=== PATIENT | male | born 1940 | race Caucasian/White ===

== ENCOUNTER → 2017-02-26 | Day surgery (SDC) | payer MEDICARE, OTHER ==
[~2017-02-26] MED LIST: AMLO5 PO; BUPIVACAINE HCL PF 0.5% 30 ML VIAL ONE; BYST10TA2 PO; CLON0.1T PO; IOHEXOL 180 MG/ML 20 ML VIAL (for RAD DIAG) EPIDURAL ONE; IRBE300T11 PO; LISI40TA PO; LYRI50CA PO; OXYC1TAB36 PO; PRED2.5T PO; PROPOFOL 200 MG/20 ML AMP IV ONE; TEMA30CA PO; TRIAMCINOLONE ACETONIDE 40 MG/ML VIAL I-ARTICULR ONE; methylPREDNISolone ACETATE 40 MG/ML VIAL I-ARTICULR ONE
--- NOTE | 2017-03-01 12:29 | M6 ---
cc: LUCY HARRIS M.D. DATE: 02/26/2017 1938 PROCEDURE Fluoroscopically guided injection bilateral sacroiliac joints. History and physical was completed and signed. Consent was signed. Procedure site was marked. Medications were listed and reconciled. Pain score was recorded. Allergies were noted. Time out was taken. Fluoroscopy time was recorded where applicable. Sedation was administered or directed by Dr. Harris. The patient was given oxygen. The patient was monitored by a registered nurse. Total procedure time was greater than 15 minutes. IV was started, blood pressure cuff, pulse oximeter and EKG were applied. The patient was placed in the prone position on a Dudley table, sedated with small amounts of propofol titrated to effect. Vital signs were monitored and remained stable throughout the procedure. The sacral area was prepped with alcohol and 10% Betadine solution and draped with sterile drapes. Fluoroscopy was used shooting from medial to lateral to clearly visualize the posterior joint line of the bilateral sacroiliac joints. Separate sterile 5-inch 22 gauge spinal needles were advanced into these joints under fluoroscopic guidance. There was negative aspiration for blood or any other type of fluid and at each location the patient was given 2 mL of 0.5% Marcaine, 20 mg of Depo-Medrol, 20 mg of Kenalog. Following the procedure the patient was taken to the recovery room with stable vital signs neurologically intact. He will be evaluated immediately and with followup to determine if he has a subjective decrease in his pain and a corresponding objective increase in his functional capabilities. W. MD CHELSEA Thornton/DANY /8:50 AM /12:18 PM
== END | disposition home or self-care (01) ==
LOC: PHSDC 06:44
PROVIDERS: ATTEND Pain Medicine Interventional Pain Medicine
DX: M54.5 Low back pain (principal)
CPT/HCPCS: 99152; G0260; J1030; J3301; Q9965; 27096

== ENCOUNTER → 2017-10-09 | Day surgery (SDC) | payer MEDICARE, OTHER ==
[~2017-10-09] MED LIST changes: -AMLO5 PO; -BUPIVACAINE HCL PF 0.5% 30 ML VIAL ONE; -IOHEXOL 180 MG/ML 20 ML VIAL (for RAD DIAG) EPIDURAL ONE; -IRBE300T11 PO; +LIDOCAINE HCL PF 2% VIAL NERV BLOCK ONE; +SODIUM CHLORIDE 0.9% 10 ML VIAL ONE; -TRIAMCINOLONE ACETONIDE 40 MG/ML VIAL I-ARTICULR ONE; +TRIAMCINOLONE ACETONIDE 40 MG/ML VIAL NERV BLOCK ONE; -methylPREDNISolone ACETATE 40 MG/ML VIAL I-ARTICULR ONE
--- NOTE | 2017-10-12 19:38 | M6 ---
cc: LUCY HARRIS M.D., ROHIT K. M.D. DATE: 10/12/2017. PROCEDURE PERFORMED: Fluoroscopically guided right L3 selective nerve root block. DESCRIPTION OF THE PROCEDURE IN DETAIL: History and physical was completed and signed. Consent was signed. Procedure site was marked. Medications were listed and reconciled. Pain score was recorded. Allergies were noted. Time out was taken. Fluoroscopy time was recorded where applicable. Sedation was administered or directed by Dr. Harris. The patient was given oxygen. The patient was monitored by a registered nurse. Total procedure time was greater than 15 minutes. IV was started, blood pressure cuff, pulse oximeter and EKG were applied. The patient was placed in the prone position on a Dudley table and sedated with small amounts of propofol titrated to effect. Vital signs were monitored and remained stable throughout the procedure. The lumbar area was prepped with alcohol and 10% Betadine solution and draped with sterile drapes. Fluoroscopy was used in both the AP and lateral projections to clearly visualize the right L3-4 neural foramen. then a 3-1/2-inch 22-gauge Chiba needle was advanced into the dorsal aspect of the foramen. There was negative aspiration for blood or any other type of fluid and 1.5 mL of Omnipaque was injected and seen to spread distally along the L3 nerve root and a small amount of Omnipaque spread medially through the neural foramen. At this point, the patient was given 0.5 mL of 2% lidocaine and 20 mg of Kenalog. Following this, the patient was taken to the recovery room with stable vital signs neurologically intact. He will be evaluated immediately and with followup to determine if he has a subjective decrease in his usual pain and a corresponding objective increase in his functional capabilities. W. MD CHELSEA Thornton/AUREA /9:26 AM /6:57 PM
== END | disposition home or self-care (01) ==
LOC: PHSDC 07:56
PROVIDERS: ATTEND Pain Medicine Interventional Pain Medicine
DX: M54.5 Low back pain (principal)
CPT/HCPCS: 64483; 99152; J3301

== ENCOUNTER → 2017-10-29 | Day surgery (SDC) | payer MEDICARE ==
[~2017-10-29] MED LIST changes: +BUPIVACAINE HCL PF 0.5% 30 ML VIAL ONE; -LIDOCAINE HCL PF 2% VIAL NERV BLOCK ONE; -SODIUM CHLORIDE 0.9% 10 ML VIAL ONE; +TRIAMCINOLONE ACETONIDE 40 MG/ML VIAL I-ARTICULR ONE; -TRIAMCINOLONE ACETONIDE 40 MG/ML VIAL NERV BLOCK ONE; +methylPREDNISolone ACETATE 40 MG/ML VIAL I-ARTICULR ONE
--- NOTE | 2017-10-29 08:58 | M6 ---
cc: LUCY HARRIS M.D. DATE: 10/29/2017 1938 PROCEDURE Fluoroscopically guided injection bilateral sacroiliac joints. PREPROCEDURE NOTE Attention Dr. Garcia: On 10/09/2017, I performed a fluoroscopically guided right L3 selective nerve root injection on Mr. Almeida. He reports today that he had no pain on his right side for 2 days. History and physical was completed and signed. Consent was signed. Procedure site was marked. Medications were listed and reconciled. Pain score was recorded. Allergies were noted. Time out was taken. Fluoroscopy time was recorded where applicable. Sedation was administered or directed by Dr. Harris. The patient was given oxygen. The patient was monitored by a registered nurse. Total procedure time was greater than 15 minutes. IV was started, blood pressure cuff, pulse oximeter and EKG were applied. The patient was placed in the prone position on a Dudley table, sedated with small amounts of propofol titrated to effect. Vital signs were monitored and remained stable throughout the procedure. The lumbar area was prepped with alcohol and 10% Betadine solution, draped with sterile drapes. Fluoroscopy was used shooting from medial to lateral to clearly visualize the posterior joint line of the bilateral sacroiliac joints. Separate sterile 5-inch 22-gauge spinal needles were advanced into these joints under fluoroscopic guidance. There was negative aspiration for blood or any other type of fluid and at each location the patient was given 1-1/2 mL of 0.5% Marcaine, 20 mg of Depo-Medrol, 20 mg of Kenalog. Following the procedure the patient was taken to the recovery room with stable vital signs neurologically intact. He will be evaluated immediately and with followup to determine if he has a subjective decrease in his usual pain and a corresponding objective increase in his functional capability. W. MD CHELSEA Thornton/DANY /8:27 AM 8:32 AM
== END | disposition home or self-care (01) ==
LOC: PHSDC 06:37
PROVIDERS: ATTEND Pain Medicine Interventional Pain Medicine
DX: M54.5 Low back pain (principal)
CPT/HCPCS: 99152; G0260; J1030; J3301; 27096

== ENCOUNTER → 2018-03-06 | Outpatient (CLI) | payer MEDICARE ==
[~2018-03-06] MED LIST changes: -BUPIVACAINE HCL PF 0.5% 30 ML VIAL ONE; +CYCL10TA PO; +PERC10TA27 PO; -PROPOFOL 200 MG/20 ML AMP IV ONE; +TERA1CAP3 PO; -TRIAMCINOLONE ACETONIDE 40 MG/ML VIAL I-ARTICULR ONE; -methylPREDNISolone ACETATE 40 MG/ML VIAL I-ARTICULR ONE
[2018-03-06 12:45] LABS: INTERNATIONAL NORMALIZED RATIO 1.2 RATIO; PROTHROMBIN TIME - PATIENT 11.8 SEC (9.8-11.6)
[2018-03-06 12:47] LABS: AUTOMATED NEUTROPHIL # 2.3 TH/MM3 (1.8-7.7); BASOPHIL % 0.5 % (0.0-2.0); EOSINOPHIL # 0.2 TH/MM3 (0-0.4); EOSINOPHIL % 4.9 % (0.0-4.0); HEMATOCRIT 34.8 % (39.0-51.0); HEMOGLOBIN 11.9 GM/DL (13.0-17.0); LYMPH % 27.7 % (9.0-44.0); LYMPHOCYTE # 1.2 TH/MM3 (1.0-4.8); MEAN CELL VOLUME 96.5 FL (80.0-100.0); MEAN CORPUSCULAR HEMOGLOBIN 32.9 PG (27.0-34.0); MEAN CORPUSCULAR HGB CONC 34.1 % (32.0-36.0); MEAN PLATELET VOLUME 8.7 FL (7.0-11.0); MONO % 14.9 % (0.0-8.0); MONOCYTE # 0.7 TH/MM3 (0-0.9); PLATELET COUNT 170 TH/MM3 (150-450); RED BLOOD COUNT 3.61 MIL/MM3 (4.50-5.90); RED CELL DISTRIBUTION WIDTH 14.4 % (11.6-17.2); WHITE BLOOD COUNT 4.4 TH/MM3 (4.0-11.0)
[2018-03-06 12:54] LABS: BILIRUBIN, URINE NEG (NEG); BLOOD, URINE NEG (NEG); GLUCOSE,URINE NEG (NEG); HYALINE CAST, URINE 11 /lpf (RARE); KETONE, URINE NEG (NEG); MUCUS URINE FEW /lpf (OCC); NITRITE,URINE NEG (NEG); SQUAMOUS EPITHELIAL CELL URINE <1 /hpf (0-5); URINE COLOR YELLOW (YELLW/STRAW); URINE LEUKOCYTE ESTERASE NEG (NEG)
[2018-03-06 13:04] LABS: ALBUMIN 3.9 GM/DL (3.4-5.0); BLOOD UREA NITROGEN 29 MG/DL (7-18); CREATININE 1.52 MG/DL (0.60-1.30); GLOMERULAR FILTRATION RATE 44 ML/MIN (>89); GLUCOSE,FASTING 78 MG/DL (74-99); TOTAL PROTEIN 8.3 GM/DL (6.4-8.2)
[2018-03-06 13:05] LABS: ALKALINE PHOSPHATASE 92 U/L (45-117); ALT (GPT) 17 U/L (12-78); AST (GOT) 36 U/L (15-37); BICARBONATE 28.3 MEQ/L (21.0-32.0); CALCIUM 8.8 MG/DL (8.5-10.1); CHLORIDE 105 MEQ/L (98-107); SODIUM (NA) 141 MEQ/L (136-145)
--- NOTE | 2018-03-08 12:10 | EKG ---
Date Performed: 03/06/2018 Time Performed: 12:27:58 PTAGE: 77 years EKG: Sinus rhythm WITH OCCASIONAL VENTRICULAR PREMATURE COMPLEXES BORDERLINE ECG PREVIOUS TRACING : 07/15/2012 11.00 DOCTOR: Ericka Freedman Interpretating Date/Time 03/08/2018 11:59:07
== END ==
LOC: CPRE 12:00
PROVIDERS: ATTEND Neurological Surgery
DX: Z01.812 Encounter for preprocedural laboratory examination (principal); Z01.810 Encounter for preprocedural cardiovascular examination; M48.062 Spinal stenosis, lumbar region with neurogenic claudication; M51.36 Other intervertebral disc degeneration, lumbar region; M43.10 Spondylolisthesis, site unspecified; R94.31 Abnormal electrocardiogram [ECG] [EKG]; Z79.01 Long term (current) use of anticoagulants
CPT/HCPCS: 36415; 80053; 81001; 85025; 85610; 85730; 87640; 87641; 93005

== ENCOUNTER 2018-03-14 06:05 | Inpatient (IN) | payer MEDICARE ==
[~2018-03-14] VITALS: Ht 180.3 cm; Wt 108.1 kg
[~2018-03-14 06:05] MED LIST changes: -CYCL10TA PO; -PERC10TA27 PO
[2018-03-14] MEDS ORDERED: POVIDONE IODINE 5% (ANTISEPSIS KIT) 4 APPLICATIONS EACH NARE PRN (06:30)
[2018-03-14] MEDS ORDERED: ceFAZolin 2 GM/DEX PREMIX 50 ML IV SCH (06:30)
[2018-03-14] MEDS ORDERED: LACTATED RINGER'S 1000 ML IV PRN (06:30)
[2018-03-14] MEDS ORDERED: CHLORHEXIDINE GLUCONATE 2 % 1 PACK (2 CLOTHS) TOPICAL PRN (06:30)
[2018-03-14] MEDS ORDERED: SODIUM CHLORID 0.9% 500 ML IV PRN (06:30)
[2018-03-14] MEDS: SODIUM CHLOR 0.9% 1000 ML INJ 1,000 ML IV SCH ×3 (06:30→15:39)
[2018-03-14] MEDS ORDERED: METOPROLOL TARTRATE 25 MG TAB PO PRN (06:30)
[2018-03-14] MEDS ORDERED: GELFOAM SIZE 100 ONE ×2 (07:00→10:44)
[2018-03-14] MEDS ORDERED: BUPIVACAINE/EPINEPHRINE 0.5% PF 10 ML VIAL ONE (07:00)
[2018-03-14] MEDS ORDERED: THROMBIN (TOPICAL) 5,000 UNIT VIAL ONE ×2 (07:00→10:44)
[2018-03-14] MEDS ORDERED: VANCOMYCIN HCL 1000 MG VIAL ONE ×2 (07:03→10:09)
[2018-03-14] MEDS ORDERED: HYDROCORTISONE SOD SUCCINATE 100 MG VIAL ONE (07:06)
[2018-03-14] MEDS ORDERED: ACETAMINOPHEN 1000 MG/100 ML 100 ML IV ONE (08:19)
[2018-03-14] MEDS ORDERED: HYDROCORTISONE SOD SUCCINATE 100 MG VIAL IV SCH (08:30)
[2018-03-14] MEDS ORDERED: GENTAMICIN SULFATE 80 MG/2 ML VIAL ONE (08:40)
[2018-03-14] MEDS ORDERED: ARTIFICIAL TEARS OPTH OINT 3.5 APPLIC/3.5 GM TUBO ONE (08:46)
[2018-03-14] MEDS ORDERED: GLYCOPYRROLATE 1 MG/5 ML SYRINGE IV PUSH ONE (12:00)
[2018-03-14] MEDS ORDERED: ONDANSETRON HCL 4 MG/2 ML VIAL IV PUSH ONE (12:00)
[2018-03-14] MEDS ORDERED: DEXAMETHASONE SOD PHOS 4 MG/ML VIAL IV ONE (12:00)
[2018-03-14] MEDS ORDERED: LIDOCAINE HCL 1% PF 5 ML SYRINGE OTHER ONE (12:00)
[2018-03-14] MEDS ORDERED: LACTATED RINGER'S 1000 ML INJ 1,000 ML IV ONE (12:00)
[2018-03-14] MEDS ORDERED: ROCURONIUM INJ 50 MG/5 ML SYRINGE IV PUSH ONE (12:00)
[2018-03-14] MEDS ORDERED: ePHEDrine/NS 25 MG/5 ML SYRINGE IV ONE (12:00)
[2018-03-14] MEDS ORDERED: PROPOFOL 200 MG/20 ML AMP IV ONE (12:00)
[2018-03-14] MEDS ORDERED: NEOSTIGMINE 5 MG/5 ML SYRINGE IV PUSH ONE (12:00)
[2018-03-14] MEDS ORDERED: PHENYLEPH/NS 1000 MCG/10 ML SYR IV ONE (12:00)
[2018-03-14] MEDS ORDERED: NORMOSOL R INJ 1,000 ML IV ONE (12:00)
[2018-03-14] MEDS ORDERED: ceFAZolin INJ 1,000 MG VIAL IV ONE (12:00)
[2018-03-14] MEDS ORDERED: CALCIUM GLUCONATE INJ 1 GM in SODIUM CHLORIDE 0.9% INJ 100 ML IV PRN (14:00)
[2018-03-14] MEDS ORDERED: MORPHINE SULFATE 4 MG/ML INJ IV PUSH PRN (14:00)
[2018-03-14] MEDS ORDERED: MAGNESIUM SULFATE INJ 2 GM in SODIUM CHLORIDE 0.9% INJ 100 ML IV PRN (14:00)
[2018-03-14] MEDS ORDERED: DO NOT ADM ANY ANTICOAGULANT DRUGS PRN (14:00)
[2018-03-14] MEDS ORDERED: MAGNESIUM HYDROXIDE SUSP 30 ML CUP PO PRN (14:00)
[2018-03-14] MEDS ORDERED: TEMAZEPAM 15 MG CAP PO PRN (14:00)
[2018-03-14] MEDS ORDERED: ONDANSETRON HCL 4 MG/2 ML VIAL IV PUSH PRN (14:00)
[2018-03-14] MEDS ORDERED: BISACODYL 10 MG SUPP RECTAL PRN (14:00)
[2018-03-14] MEDS ORDERED: SENNOSIDES 8.6 MG TAB PO PRN (14:00)
[2018-03-14] MEDS ORDERED: POTASSIUM CHLOR 20 MEQ PREMIX 100 ML IV PRN (14:00)
[2018-03-14] MEDS: HYDROCORTISONE SOD SUCCINATE 100 MG VIAL IV PUSH SCH ×2 (14:00→22:24)
[2018-03-14] MEDS ORDERED: MENTHOL LOZENGE BUCCAL PRN (14:00)
[2018-03-14] MEDS ORDERED: RESP: ALBUTEROL 2.5 MG/3 ML NEB (PRN) NEB (14:00)
[2018-03-14] MEDS ORDERED: ALUMINUM/MAGNESIUM/SIMETH 30 ML CUP PO PRN (14:00)
[2018-03-14] MEDS ORDERED: cloNIDine HCL 0.1 MG TAB PO PRN (14:00)
[2018-03-14] MEDS ORDERED: PROMETHAZINE INJ 25 MG/ML VIAL IM PRN (14:00)
[2018-03-14] MEDS ORDERED: oxyCODONE/ACETAMINOPHEN 10 MG/325 MG TAB PO PRN (14:00)
[2018-03-14] MEDS ORDERED: ACETAMINOPHEN 325 MG TAB PO PRN ×2 (14:00→19:15)
[2018-03-14] MEDS ORDERED: CYCLOBENZAPRINE HCL 10 MG TAB PO PRN (14:00)
[2018-03-14] MEDS ORDERED: SODIUM CHLORIDE 0.9% FLUSH 10 ML FLUSH IV FLUSH PRN (14:00)
[2018-03-14] MEDS ORDERED: *morphine SULFATE 4 MG/ML PERIprocedure ONLY ONE (14:03)
--- NOTE | 2018-03-14 14:03 | PD.OP ---
MD Issa Steele MD Operative Report Date of Surgery: March 14, 2018 Preoperative Diagnosis: Severe L2-3 and L3-4 degenerative disc disease with disc height collapse along with facet hypertrophy and foraminal stenosis with associated intractable low back pain Postoperative Diagnosis: Same Procedure: Lumbar L2-3 and L3-4 transforaminal interbody fusion; L2-4 pedicle screw fixation; L2-3 and L3-4 interbody cage placement; microsurgical technique Anesthesia: General endotracheal by Екатерина villareal Surgeon: José Miguel Garcia MD Account Manager Trainee(s): Bela Du Operation and Findings: Following initiation of general endotracheal anesthesia, the patient had a Mccloud catheter placed along with sequential compression devices. Ancef 2 grams was administered intravenously and he was turned in a prone position on a Chandler frame, on a Dudley table, and all pressure points adequately padded. The lumbosacral region was then prepped with Chloraprep and sterilely draped with Ioban along the usual sterile draping. A right paraspinal skin incision was then made extending from the L2-4 levels after infiltrating the skin with 0.5% Marcaine with epinephrine solution extending down through the fascia. The muscle fibers were split using avascular fatty plane and detached from the underlying facets, transverse process and lateral portion of lamina on the right side and a self-retaining retractor used for exposure. Intraoperative fluoroscopy was also used for level of confirmation along with microscope magnification for further dissection. There was significant facet and ligamentum flavum hypertrophy noted at the L2-3 and L3-4 levels. Right L2-3 and L3-4 facets were resected with a drill bit along with the lamina and there was severe foraminal and lateral recess stenosis from hypertrophied ligamentum flavum and facet which were decompressed. There was significant disc height collapse along with disc protrusion also leading to the foraminal stenosis. Epidural hemostasis was achieved with bipolar cautery and Gelfoam with thrombin. Subsequently entered into the disc space at the L2-3 and L3-4 levels with a #15 blade and sheron were used for discectomy. I then placed PEEK cages packed with local autograft bone and more local autograft bone was packed adjacent to the cage in both interspaces for added interbody fusion. With placement of the cages, I was able to distract the interspaces and open up the foramen further bilaterally. Subsequently in order to facilitate the fusion and provide stabilization, pedicle screw fixation was undertaken using [place] spine screws on entry point at the right L2, L3 and L4 levels at the junction of the transverse process and facet. Subsequently using AP and lateral fluoroscopy tap and screw placement. The screws were then connected with a geovanna and locked in place with caps. The construct appeared very secure at this point. The area was then copiously irrigated with Vancomycin solution and powder. The retractors were removed and the bipolar cautery used for hemostasis. The muscle fascia was then approximated using 2-0 Vicryl interrupted stitches and then 3-0 Vicryl subcuticular stitches also placed in interrupted fashion. The final skin closure was with corinne. A sterile dressing was then applied. The patient then turned in supine position, extubated and taken to recovery room. There were no intraoperative complications. All sponge and needle counts were correct at the end of procedure. Estimated blood loss about 300 ml. José Miguel Garcia MD March 14, 2018 14:03
--- NOTE | 2018-03-14 14:36 | RADRPT ---
EXAM DATE: 03/14/2018 2:04 PM EDT AGE/SEX: 77 years / Male INDICATIONS: Post-op L2-L3 and L3-L4 posterior lumbar fusion. CLINICAL DATA: This is the patient's initial encounter. Patient reports that signs and symptoms have been present for 1 day and indicates a pain score of Nonresponsive. MEDICAL/SURGICAL HISTORY: Non-responsive. Fusion, lumbar. COMPARISON: No prior [facility] exams available for comparison. FINDINGS: Postsurgical changes are noted following lumbar fusion. A right-sided fusion geovanna is identified extend ing from L2 to L4. There is a left-sided fusion geovanna extending from L4 to S1. Cages are identified in the L2-3, L3-4, L4-5 and L5-S1 discs. Lumbar alignment is intact. CONCLUSION: Satisfactory post operative appearance of the lumbar spine following lumbosacral fusion as described. Electronically signed by: Kenton Kelly MD 03/14/2018 2:35 PM EDT
[2018-03-14] MEDS ORDERED: *HYDROmorphone PF 0.5 MG/0.5 ML PERIprocedure ONLY ONE ×2 (14:42→15:17)
[2018-03-14] MEDS ORDERED: MIDAZOLAM HCL 2 MG/2 ML VIAL ONE (14:57)
[2018-03-14 16:10] VITALS: BP 142/65; PULSE 68; RESP 19; TEMP 98.1; O2SAT 96
[2018-03-14] MEDS: PREGABALIN 25 MG CAP PO SCH (18:00)
[2018-03-14] MEDS: cloNIDine HCL 0.1 MG TAB PO SCH (18:25)
[2018-03-14 18:37] LABS: AUTOMATED NEUTROPHIL # 7.8 TH/MM3 (1.8-7.7); HEMATOCRIT 35.5 % (39.0-51.0); HEMOGLOBIN 12.2 GM/DL (13.0-17.0); LYMPH % 5.6 % (9.0-44.0); LYMPHOCYTE # 0.5 TH/MM3 (1.0-4.8); MEAN CELL VOLUME 96.9 FL (80.0-100.0); MEAN CORPUSCULAR HEMOGLOBIN 33.2 PG (27.0-34.0); MEAN CORPUSCULAR HGB CONC 34.3 % (32.0-36.0); MEAN PLATELET VOLUME 9.3 FL (7.0-11.0); MONO % 1.4 % (0.0-8.0); MONOCYTE # 0.1 TH/MM3 (0-0.9); PLATELET COUNT 180 TH/MM3 (150-450); RED BLOOD COUNT 3.66 MIL/MM3 (4.50-5.90); RED CELL DISTRIBUTION WIDTH 14.5 % (11.6-17.2); WHITE BLOOD COUNT 8.4 TH/MM3 (4.0-11.0)
[2018-03-14 18:53] LABS: BICARBONATE 23.7 MEQ/L (21.0-32.0); CALCIUM 8.1 MG/DL (8.5-10.1); CREATININE 1.72 MG/DL (0.60-1.30)
[2018-03-14 20:00] VITALS: BP 119/62; PULSE 68; RESP 19; TEMP 97.3; O2SAT 99
[2018-03-14] MEDS: oxyCODONE/ACETAMINOPHEN 10 MG/325 MG TAB PO PRN (20:50)
[2018-03-14] MEDS: SODIUM CHLORIDE 0.9% FLUSH 10 ML FLUSH IV FLUSH SCH (20:53)
[2018-03-14] MEDS: DOCUSATE SODIUM 50 MG/SENNA 8.6 MG TAB PO SCH (20:53)
[2018-03-14] MEDS: TERAZOSIN HCL 1 MG CAP PO SCH (20:53)
[2018-03-15] VITALS (7 sets, daily range): BP systolic 93–141; BP diastolic 52–64; PULSE 62–83; RESP 16–20; TEMP 97.8–98.5; O2SAT 96–99
[2018-03-15] MEDS: HYDROCORTISONE SOD SUCCINATE 100 MG VIAL IV PUSH SCH (05:10)
[2018-03-15] MEDS: SODIUM CHLOR 0.9% 1000 ML INJ 1,000 ML IV SCH ×2 (05:32→13:50)
[2018-03-15] MEDS: SODIUM CHLORIDE 0.9% FLUSH 10 ML FLUSH IV FLUSH SCH ×2 (09:00→22:03)
[2018-03-15] MEDS: LISINOPRIL 20 MG TAB PO SCH (09:00)
[2018-03-15] MEDS: NEBIVOLOL 10 MG TAB PO SCH (09:00)
[2018-03-15] MEDS: cloNIDine HCL 0.1 MG TAB PO SCH ×3 (09:00→18:00)
[2018-03-15] MEDS: LACTULOSE SYRUP 20 GM/30 ML CUP PO SCH (09:00)
[2018-03-15] MEDS: oxyCODONE/ACETAMINOPHEN 10 MG/325 MG TAB PO PRN ×2 (09:01→22:03)
[2018-03-15] MEDS: DOCUSATE SODIUM 50 MG/SENNA 8.6 MG TAB PO SCH ×2 (09:01→22:03)
[2018-03-15] MEDS: PANTOPRAZOLE SOD 40 MG DELAYED RELEASE TAB PO SCH (09:01)
[2018-03-15] MEDS: PREGABALIN 25 MG CAP PO SCH ×2 (09:27→22:03)
--- NOTE | 2018-03-15 14:52 | HHI.NSPN ---
(Ralph Schultz) History Chief Complaint: Incisional pain. (Ralph Schultz) Interval History 03/15/18: Pt s/p Lumbar L2-3 and L3-4 transforaminal interbody fusion; L2-4 pedicle screw fixation; L2-3 and L3-4 interbody cage placement; microsurgical technique on 03/14/18. He states he is doing better with mod incisional pain but not the chronic low back pain. No radiculopathy or paresthesias in LEs. He is ambulating short distance. (Ralph Schultz) Review of Systems General: Negative for: fever, chills, insomnia Respiratory: Negative for: shortness of breath, cough, sputum Cardiovascular: Negative for: chest pain Gastrointestinal: Negative for: nausea, vomitting, diarrhea, constipation ( Ralph Schultz) Exam Results Vital Signs Date Time Temp Pulse Resp B/P (MAP) Pulse Ox O2 Delivery O2 Flow Rate FiO2 03/15/18 12:00 97.8 72 16 103/56 (72) 99 03/15/18 10:04 Nasal Cannula 2.00 Intake and Output 03/15/18 03/15/18 03/16/18 08:00 16:00 00:00 Intake Total 750 ml Output Total 800 ml Balance -50 ml (Ralph Schultz) Physical Examination General: Pt sitting up in chair wanting to go back to bed after being up several hours. His is in NAD. Eyes: Pupils equal. Sclera anicteric. Resp: CTA bilaterally Heart: NSR No murmurs Abd: Soft positive bs Skin: Pt returned to bed and bandage changed. No cyanosis or erythema. new bandage placed. Bruce in place. Muscle: Moves LEs with 5/5 strength. Neuro: Pt awake and alert. Follows commands well. Speech clear and appropriate. Sensation intact in LEs. (Ralph Schultz) Lab, Micro, Other Results Last Impressions Lumbar Spine X-Ray 03/14/18 0000 Signed Impressions: CONCLUSION: Satisfactory post operative appearance of the lumbar spine following lumbosacra l fusion as described. Laboratory Tests Test 03/14/18 18:02 White Blood Count 8.4 TH/MM3 Red Blood Count 3.66 MIL/MM3 Hemoglobin 12.2 GM/DL Hematocrit 35.5 % Mean Corpuscular Volume 96.9 FL Mean Corpuscular Hemoglobin 33.2 PG Mean Corpuscular Hemoglobin Concent 34.3 % Red Cell Distribution Width 14.5 % Platelet Count 180 TH/MM3 Mean Platelet Volume 9.3 FL Neutrophils (%) (Auto) 93.0 % Lymphocytes (%) (Auto) 5.6 % Monocytes (%) (Auto) 1.4 % Eosinophils (%) (Auto) 0.0 % Basophils (%) (Auto) 0.0 % Neutrophils # (Auto) 7.8 TH/MM3 Lymphocytes # (Auto) 0.5 TH/MM3 Monocytes # (Auto) 0.1 TH/MM3 Eosinophils # (Auto) 0.0 TH/MM3 Basophils # (Auto) 0.0 TH/MM3 CBC Comment DIFF FINAL Differential Comment Blood Urea Nitrogen 30 MG/DL Creatinine 1.72 MG/DL Random Glucose 145 MG/DL Calcium Level 8.1 MG/DL Sodium Level 139 MEQ/L Potassium Level 5.1 MEQ/L Chloride Level 104 MEQ/L Carbon Dioxide Level 23.7 MEQ/L Anion Gap 11 MEQ/L Estimat Glomerular Filtration Rate 39 ML/MIN (Ralph Schultz) Medical Decision Making Impression and Plan A: 77 y/o M s/p Lumbar L2-3 and L3-4 transforaminal interbody fusion; L2-4 pedicle screw fixation; L2-3 and L3-4 interbody cage placement; microsurgical technique P: Continue with pain control Possibly d/c home tomorrow. (Ralph Schultz) Attending Statement The exam, history, and the medical decision-making described in the above note were completed with the assistance of the mid-level provider. I reviewed and agree with the findings presented. I attest that I had a [id number]-[id number]-pymm encounter with the patient on the same day, and personally performed and documented my assessment and findings in the medical record. (José Miguel Garcia MD) Ralph Schultz March 15, 2018 14:52 José Miguel Garcia MD March 15, 2018 14:55
[2018-03-15] MEDS ORDERED: PERC10TA27 PO (14:54)
[2018-03-15] MEDS ORDERED: CYCL10TA PO (14:54)
--- NOTE | 2018-03-15 14:59 | HHI.FF ---
Face to Face Verification Diagnosis: (1) Chronic low back pain (2) DDD (degenerative disc disease), lumbar Physical Therapy Order: Evaluate and Treat, Improve ambulation, Strength and gait training Home Health Nursing Order: Wound care and dressing changes Nursing assessment with vital signs Instructions: Remove lumbar corinne on 03/25/18 I have seen patient Humberto Almeida on 03/15/18. My clinical findings support the need for the requested home health care services because: Deconditioned w/ increased weakness High risk of falls I certify that my clinical findings support that this patient is homebound because: Post-op weakness Unsteady gait/balance Unable to use public transportation Ralph Schultz March 15, 2018 2:58 pm
[2018-03-15] MEDS ORDERED: predniSONE 5 MG TAB PO SCH ×2 (16:00→21:00)
[2018-03-15] MEDS: TERAZOSIN HCL 1 MG CAP PO SCH (22:03)
[2018-03-16] MEDS: SODIUM CHLOR 0.9% 1000 ML INJ 1,000 ML IV SCH ×2 (01:13→05:10)
[2018-03-16 08:00] VITALS: BP 151/70; PULSE 84; RESP 18; TEMP 98.5; O2SAT 99
[2018-03-16] MEDS: LACTULOSE SYRUP 20 GM/30 ML CUP PO SCH (09:00)
[2018-03-16] MEDS: oxyCODONE/ACETAMINOPHEN 10 MG/325 MG TAB PO PRN (09:06)
[2018-03-16] MEDS: PANTOPRAZOLE SOD 40 MG DELAYED RELEASE TAB PO SCH (09:06)
[2018-03-16] MEDS: LISINOPRIL 20 MG TAB PO SCH (09:07)
[2018-03-16] MEDS: DOCUSATE SODIUM 50 MG/SENNA 8.6 MG TAB PO SCH (09:10)
[2018-03-16] MEDS: PREGABALIN 25 MG CAP PO SCH (09:12)
[2018-03-16] MEDS: NEBIVOLOL 10 MG TAB PO SCH (09:17)
[2018-03-16] MEDS: SODIUM CHLORIDE 0.9% FLUSH 10 ML FLUSH IV FLUSH SCH (09:17)
[2018-03-16] MEDS: cloNIDine HCL 0.1 MG TAB PO SCH (09:17)
== END 2018-03-16 12:21 | disposition home health service (06) | DRG 460 ==
LOC: HSDI 06:05 → N06A 16:04
PROVIDERS: ADMIT Neurological Surgery; ATTEND Neurological Surgery
PROC: 0SB20ZZ Excision of Lumbar Vertebral Disc, Open Approach (ICD-10-PCS; 2018-03-14)
PROC: 0SG10AJ Fusion of 2 or more Lumbar Vertebral Joints with Interbody Fusion Device, Posterior Approach, Anterior Column, Open Approach (ICD-10-PCS; principal; 2018-03-14 08:38)
DX: M51.36 Other intervertebral disc degeneration, lumbar region (principal); M48.061 Spinal stenosis, lumbar region without neurogenic claudication
CPT/HCPCS: 72100; 76000; 80048; 85025; 86850; 86900; 86901; 94150; C1713; J0131; J0690; J1100; J1170; J1580; J1720; J2250; J2270; J2370; J2405; J2710; J3010; J3370; J7030; J7120; J7512; L0627